=== PATIENT | female | born 1950 | race Caucasian/White ===

== ENCOUNTER → 2018-07-05 | Outpatient (CLI) | payer MEDICARE, BC ==
[2018-03-29 11:00] VITALS: BP 130/60
[~2018-07-05] MED LIST: ASPI-630 PO; ATOR40TA59 PO; GABA600T2 PO; LOSA1TAB22 PO; METF10007 PO; MULT1TAB52 PO
--- NOTE | 2018-07-05 17:10 | RAD ---
MR#: [id number] Date of Study: 07/05/2018 Ordering Physician: ANGEL BERGER, Referring Physician: ANGEL BERGER, Tech: Dilan Bocanegra MBA, RDMS, RVT, RDCS, RTR APPROVED REPORT Bilateral Lower Extremity Venous Study for DVT Patient Location: OUT-PATIENT Indications s/p b/l gsv ablations Vein Imaging (Right) CFV (R): Compressible SFJ (R): Compressible FEM (R): Compressible POP (R): Compressible DFV (R): Compressible PTV (R): Spontaneous GSV (R): Absent Flow Peroneals (R): Spontaneous Vein Imaging (Left) CFV (L): Compressible SFJ (L): Compressible FEM (L): Compressible DFV (L): Compressible PTV (L): Spontaneous GSV (L): Absent Flow Peroneals (L): Spontaneous Doppler Evaluation (Right) CFV (R): Spontaneous POP (R):Spontaneous Doppler Evaluation (Left) CFV (L):Spontaneous POP (L):Spontaneous Findings Technically limited study but within these limitations grossly there is no evidence of thrombus in th e saphenofemoral junction. The bilateral greater saphenous veins do not show any evidence of flow and this is consistent with recent ablation. The deep veins of the legs were evaluated for DVT and they show excellent compressibility and normal Doppler flow. No obvious evidence of deep venous thrombosis is noted. Critical Notification Critical Value: No <Conclusion> No clear evidence of DVT in the bilateral lower extremities. Successful bilateral greater saphenous vein ablations. Signed by : Byron Hunter, Electronically Approved : 07/05/2018 17:08:57
== END | disposition home or self-care (01) ==
LOC: US 10:49
PROVIDERS: ATTEND Internal Medicine Cardiovascular Disease
DX: I82.813 Embolism and thrombosis of superficial veins of lower extremities, bilateral (principal); I10 Essential (primary) hypertension; E11.9 Type 2 diabetes mellitus without complications; E78.00 Pure hypercholesterolemia, unspecified; E78.5 Hyperlipidemia, unspecified; E87.6 Hypokalemia; I48.0 Paroxysmal atrial fibrillation; G47.33 Obstructive sleep apnea (adult) (pediatric); Z86.72 Personal history of thrombophlebitis; Z87.891 Personal history of nicotine dependence; Z68.38 Body mass index [BMI] 38.0-38.9, adult; Z88.2 Allergy status to sulfonamides; Z88.0 Allergy status to penicillin; Z82.49 Family history of ischemic heart disease and other diseases of the circulatory system; Z83.3 Family history of diabetes mellitus
CPT/HCPCS: 93970

== ENCOUNTER → 2019-08-01 | Outpatient (CLI) | payer MEDICARE, BC ==
[2018-03-29 11:00] VITALS: BP 130/60
[~2019-08-01] MED LIST changes: -GABA600T2 PO; +GABA600T7 PO
--- NOTE | 2019-08-07 09:27 | CARD ---
MR#: [id number] Account#: Date of Study: 08/01/2019 Ordering Physician: Francia: Sussy Kothari RDCS APPROVED REPORT EXAM: Two-dimensional and M-mode echocardiogram with Doppler and color Doppler. Other Information Quality : AverageHR: 54bpm Rhythm : Bradycardia INDICATION Atrial Fibrillation 2D DIMENSIONS RVDd3.0 (2.9-3.5cm)Left Atrium(2D)3.6 (1.6-4.0cm) IVSd1.0 (0.7-1.1cm)Aortic Root(2D)2.7 (2.0-3.7cm) LVDd4.9 (3.9-5.9cm)LVOT Diameter1.9 (1.8-2.4cm) PWd1.1 (0.7-1.1cm)LVDs3.0 (2.5-4.0cm) FS (%) 39.5 %SV79.4 ml M-Mode DIMENSIONS Left Atrium(MM)3.81 (2.5-4.0cm)Aortic Root3.09 (2.2-3.7cm) Aortic Valve AoV Peak Abelino.205.0cm/sAoV VTI48.2cm AO Peak GR.16.8mmHgLVOT Peak Abelino.138.4cm/s AO Mean GR.8mmHgAVA (VMAX)1.93cm2 DC (VTI)1.90cm2 Mitral Valve MV E Mnadqqcl355.1cm/sMV E Peak Gr.8mmHg MV DECEL [id number] A Dqmppsse527.3cm/s MV E Mean Gr.2mmHgE/A Ratio1.5 Pulmonary Valve PV Peak Hbsqrctt159.0cm/s Tricuspid Valve TR P. Atvbtfda267rb/sRAP MEWPPUHV2nvTo TR Peak Gr.06zpTmOPCS63twTo LEFT VENTRICLE The left ventricle is normal size. There is borderline concentric left ventricular hypertrophy. The l eft ventricular systolic function is normal and the ejection fraction is within normal range. The Eje ction Fraction is 60-65%. There is normal LV segmental wall motion. Transmitral Doppler flow pattern is Grade II-pseudonormal filling dynamics. RIGHT VENTRICLE The right ventricle is normal size. There is normal right ventricular wall thickness. The right ventr icular systolic function is normal. ATRIA The left atrium size is normal. The right atrium size is normal. The interatrial septum is intact wit h no evidence for an atrial septal defect or patent foramen ovale as noted on 2-D or Doppler imaging. AORTIC VALVE The aortic valve is mildly calcified. The aortic valve is trileaflet. Doppler and Color Flow revealed no significant aortic regurgitation. There is no significant aortic valvular stenosis. MITRAL VALVE Mitral annular calcification is mild to moderate. There is no evidence of mitral valve prolapse. Ther e is no mitral valve stenosis. Doppler and Color-flow revealed trace mitral regurgitation. TRICUSPID VALVE The tricuspid valve is normal in structure and function. Doppler and Color Flow revealed trace tricus pid regurgitation. The PA pressure was estimated at 22 mmHg. There is no tricuspid valve prolapse or vegetation. There is no tricuspid valve stenosis. PULMONIC VALVE The pulmonic valve is not well visualized. GREAT VESSELS The aortic root is normal in size. The ascending aorta is normal in size. The IVC is normal in size a nd collapses >50% with inspiration. PERICARDIAL EFFUSION There is no evidence of significant pericardial effusion. Critical Notification Critical Value: No <Conclusion> The left ventricle is normal size. The left ventricular systolic function is normal and the ejection fraction is within normal range. The Ejection Fraction is 60-65%. There is borderline concentric left ventricular hypertrophy. There is no significant aortic valvular stenosis. Doppler and Color Flow revealed no significant aortic regurgitation. Doppler and Color-flow revealed trace mitral regurgitation. Doppler and Color Flow revealed trace tricuspid regurgitation. The PA pressure was estimated at 22 mmHg. Signed by : Nas Peterson MD Electronically Approved : 08/01/2019 15:07:39
== END | disposition home or self-care (01) ==
LOC: ECHO 13:20
PROVIDERS: ATTEND Internal Medicine Cardiovascular Disease
DX: I08.0 Rheumatic disorders of both mitral and aortic valves (principal); I48.0 Paroxysmal atrial fibrillation
CPT/HCPCS: 93306

== ENCOUNTER 2019-10-08 15:45 | Emergency (ER) | payer MEDICARE, BC ==
[~2019-10-08] VITALS: Ht 170.2 cm; Wt 122.5 kg
[2019-10-08] MEDS ORDERED: ASPIRIN CHEWABLE 81 MG TABLET. PO STA (16:10)
--- NOTE | 2019-10-08 16:17 | PHYS DOC ---
Past Medical History Past Medical History: Diabetes-Type II, High Cholesterol, Hypertension Additional Past Medical Histor: heart murmur, mood disorder Past Surgical History: Tonsillectomy, Other Additional Past Surgical Histo: bilat carpal tunnel, R 2nd toe, bilat mastoid Alcohol Use: Rarely Drug Use: None Adult General Chief Complaint Chief Complaint: Palpitations HPI HPI Patient is a 69 year old female who presents with heart fluttering that started around 2:30 PM. The patient states that she was not short of breath and that it resolved in about 30 minutes. The patient took 2 baby aspirins when this started. She also takes one baby aspirin in the morning. States that currently she is not having the symptoms and that she denies any pain at this time. The patient does have a history of atrial fibrillation. She is seen by Dr. Izaguirre for this condition. Review of Systems Review of Systems Constitutional: Denies fever or chills [] Eyes: Denies change in visual acuity, redness, or eye pain [] HENT: Denies nasal congestion or sore throat [] Respiratory: Denies cough or shortness of breath [] Cardiovascular: No additional information not addressed in HPI [] GI: Denies abdominal pain, nausea, vomiting, bloody stools or diarrhea [] : Denies dysuria or hematuria [] Musculoskeletal: Denies back pain or joint pain [] Integument: Denies rash or skin lesions [] Neurologic: Denies headache, focal weakness or sensory changes [] Endocrine: Denies polyuria or polydipsia [] Complete systems were reviewed and found to be within normal limits, except as documented in this note. Current Medications Current Medications Current Medications Medications (Trade) Dose Ordered Sig/Terrell Start Time Stop Time Status Last Admin Dose Admin Aspirin (Children'S Aspirin) 81 mg 1X STAT 10/08/19 16:10 10/08/19 16:12 DC 10/08/19 16:19 81 MG Allergies Allergies Allergies Coded Allergies Type Severity Reaction Last Updated Verified Penicillins Allergy Intermediate rqsh/hives 03/27/18 Yes Sulfa (Sulfonamide Antibiotics) Allergy Intermediate rash/hives 03/27/18 Yes nicardipine Allergy Intermediate rash/hives 03/27/18 Yes codeine Allergy Unknown 10/08/19 Yes Physical Exam Physical Exam Constitutional: Well developed, well nourished, no acute distress, non-toxic appearance. [] HENT: Normocephalic, atraumatic, bilateral external ears normal, oropharynx moist, no oral exudates, nose normal. [] Eyes: PERRLA, EOMI, conjunctiva normal, no discharge. [] Neck: Normal range of motion, no tenderness, supple, no stridor. [] Cardiovascular:Heart rate regular rhythm, has heart murmur Lungs & Thorax: Bilateral breath sounds clear to auscultation [] Skin: Warm, dry, no erythema, no rash. [] Neurologic: Alert and oriented X 3, normal motor function, normal sensory function, no focal deficits noted. [] Psychologic: Affect normal, judgement normal, mood normal. [] Current Patient Data Vital Signs Vital Signs Date Time Temp Pulse Resp B/P (MAP) Pulse Ox O2 Delivery O2 Flow Rate FiO2 10/08/19 16:10 97.8 57 18 144/69 (94) 95 Room Air 97.8 Lab Values Laboratory Tests Test 10/08/19 16:30 White Blood Count 8.9 x10^3/uL (4.0-11.0) Red Blood Count 4.84 x10^6/uL (3.50-5.40) Hemoglobin 14.9 g/dL (12.0-15.5) Hematocrit 44.6 % (36.0-47.0) Mean Corpuscular Volume 92 fL (79-100) Mean Corpuscular Hemoglobin 31 pg (25-35) Mean Corpuscular Hemoglobin Concent 33 g/dL (31-37) Red Cell Distribution Width 12.5 % (11.5-14.5) Platelet Count 188 x10^3/uL (140-400) Neutrophils (%) (Auto) 64 % (31-73) Lymphocytes (%) (Auto) 25 % (24-48) Monocytes (%) (Auto) 8 % (0-9) Eosinophils (%) (Auto) 3 % (0-3) Basophils (%) (Auto) 0 % (0-3) Neutrophils # (Auto) 5.7 x10^3/uL (1.8-7.7) Lymphocytes # (Auto) 2.2 x10^3/uL (1.0-4.8) Monocytes # (Auto) 0.7 x10^3/uL (0.0-1.1) Eosinophils # (Auto) 0.3 x10^3/uL (0.0-0.7) Basophils # (Auto) 0.0 x10^3/uL (0.0-0.2) Prothrombin Time 14.2 SEC (11.7-14.0) H Prothrombin Time INR 1.1 (0.8-1.1) Activated Partial Thromboplast Time 35 SEC (24-38) Sodium Level 142 mmol/L (136-145) Potassium Level 3.3 mmol/L (3.5-5.1) L Chloride Level 102 mmol/L (98-107) Carbon Dioxide Level 33 mmol/L (21-32) H Anion Gap 7 (6-14) Blood Urea Nitrogen 17 mg/dL (7-20) Creatinine 0.9 mg/dL (0.6-1.0) Estimated GFR (Cockcroft-Gault) 62.1 BUN/Creatinine Ratio 19 (6-20) Glucose Level 145 mg/dL (70-99) H Calcium Level 9.1 mg/dL (8.5-10.1) Magnesium Level 1.6 mg/dL (1.8-2.4) L Total Bilirubin 0.4 mg/dL (0.2-1.0) Aspartate Amino Transferase (AST) 23 U/L (15-37) Alanine Aminotransferase (ALT) 24 U/L (14-59) Alkaline Phosphatase 84 U/L (46-116) Troponin I Quantitative < 0.017 ng/mL (0.000-0.055) Total Protein 7.3 g/dL (6.4-8.2) Albumin 3.5 g/dL (3.4-5.0) Albumin/Globulin Ratio 0.9 (1.0-1.7) L Laboratory Tests 10/08/19 16:30 Laboratory Tests 10/08/19 16:30 EKG EKG EKG interpreted by Dr. Remy Gaines with rate of 60, No STEMI. Radiology/Procedures Radiology/Procedures [] Course & Med Decision Making Course & Med Decision Making Pertinent Labs and Imaging studies reviewed. (See chart for details) The patient has a history of A. fib. The patient does not appear to be in A. fib on arrival to the ER. We'll get labs, chest x-ray, EKG, and observe her on the monitor while she is here. Will give her another baby aspirin to get her to 324 for the day. Labs are unremarkable with exception of 1.6 magnesium and 3.3 potassium. Will replace. Patient has not been in A-fib during visit. Symptoms resolved will d/c home to follow up with primary care provider. Graham Disclaimer Dragon Disclaimer This electronic medical record was generated, in whole or in part, using a voice recognition dictation system. Departure Departure Impression: Primary Impression: Hypokalemia Additional Impression: Hypomagnesemia Disposition: HOME, SELF-CARE Condition: STABLE Referrals: BOLIVAR CHAVES MD (PCP) Patient Instructions: Hypokalemia, Hypomagnesemia Additional Instructions: Thank you for visiting [facility]. We appreciate you trusting us with your care. If any additional problems come up don't hesitate to return to visit us. Please follow up with your primary care provider so they can plan additional care if needed and know about the problem that you had. If symptoms worsen come back to the Emergency Department. Any concerning symptoms that start such as chest pain, shortness of air, weakness or numbness on one side of the body, running high fevers or any other concerning symptoms return to the ER. Problem Qualifiers JUDAH GLEZ APRN Oct 08, 2019 16:17
--- NOTE | 2019-10-08 16:30 | EKG ---
[facility] [address] [place] [address] Test Date: 2019-10-08 Test Time: 16:20:15 Pat Name: ARVIN CORMIER Department: Room: Gender: F Seo Consultant: : 1950 Requested By: JUDAH GLEZ Order Number: [id number] Reading MD: Measurements Intervals [place] Rate: 60 P: 42 TX: 206 QRS: -17 QRSD: 98 T: 24 QT: 464 QTc: 464 Interpretive Statements SINUS RHYTHM LEFTWARD AXIS OTHERWISE NORMAL ECG RI6.01 No previous ECG available for comparison
[2019-10-08 16:47] LABS: BASO % 0 % (0-3); EOS # 0.3 x10^3/uL (0.0-0.7); EOS % 3 % (0-3); HEMATOCRIT 44.6 % (36.0-47.0); HEMOGLOBIN 14.9 g/dL (12.0-15.5); LYMPH # 2.2 x10^3/uL (1.0-4.8); LYMPH % 25 % (24-48); MEAN CORPUSCULAR HEMOGLOBIN 31 pg (25-35); MEAN CORPUSCULAR HGB CONC 33 g/dL (31-37); MEAN CORPUSCULAR VOLUME 92 fL (79-100); MONO # 0.7 x10^3/uL (0.0-1.1); MONO % 8 % (0-9); NEUT # 5.7 x10^3/uL (1.8-7.7); NEUT % 64 % (31-73); PLATELET COUNT 188 x10^3/uL (140-400); RED BLOOD COUNT 4.84 x10^6/uL (3.50-5.40); RED CELL DISTRIBUTION WIDTH 12.5 % (11.5-14.5); WHITE BLOOD COUNT 8.9 x10^3/uL (4.0-11.0)
--- NOTE | 2019-10-08 16:53 | RAD ---
PA and lateral views of the chest. Comparison: 04/26/2018. Indication: Palpitations Findings: The heart size is enlarged but stable. No pneumothorax or effusion. No air space or interstitial disease. The bony structures are intact. Impression: 1. No acute cardiopulmonary process. Electronically signed by: Matthew Domingo MD (10/08/2019 4:50 PM) [id number]
[2019-10-08 16:56] LABS: CALCIUM 9.1 mg/dL (8.5-10.1); CREATININE 0.9 mg/dL (0.6-1.0); GFR 62.1; POTASSIUM 3.3 mmol/L (3.5-5.1); PROTHROMBIN TIME PATIENT 14.2 SEC (11.7-14.0)
[2019-10-08 17:02] LABS: ALBUMIN 3.5 g/dL (3.4-5.0); ALBUMIN/GLOBULIN RATIO 0.9 (1.0-1.7); MAGNESIUM 1.6 mg/dL (1.8-2.4); TOTAL BILIRUBIN 0.4 mg/dL (0.2-1.0); TOTAL PROTEIN 7.3 g/dL (6.4-8.2)
[2019-10-08] MEDS ORDERED: POTASSIUM CHLORIDE 20 MEQ TABLET.ER. PO STA (17:36)
[2019-10-08] MEDS ORDERED: MAGNESIUM SULFATE 1GM 100 ML IV STA (17:36)
[2019-10-08 19:00] VITALS: BP 116/55
== END 2019-10-08 19:26 | disposition home or self-care (01) ==
LOC: ER 15:45
DX: E87.6 Hypokalemia (principal); E83.42 Hypomagnesemia; I48.91 Unspecified atrial fibrillation; E11.9 Type 2 diabetes mellitus without complications; E78.00 Pure hypercholesterolemia, unspecified; I10 Essential (primary) hypertension; Z88.0 Allergy status to penicillin; Z88.2 Allergy status to sulfonamides; Z88.8 Allergy status to other drugs, medicaments and biological substances; Z88.5 Allergy status to narcotic agent
CPT/HCPCS: 36415; 71046; 80053; 83735; 84484; 85025; 85610; 85730; 93005; 96365; 99285; J3475

== ENCOUNTER → 2020-03-31 | Outpatient (CLI) | payer MEDICARE, BC ==
[~2020-03-31] MED LIST changes: +MULT-445 PO; -MULT1TAB52 PO
--- NOTE | 2020-03-31 09:58 | RAD ---
MR#: [id number] Date of Study: 03/31/2020 Ordering Physician: ANGEL BERGER, Referring Physician: ANGEL BERGER, Tech: Dilan Bocanegra MBA, RDMS, RVT, RDCS, RTR APPROVED REPORT Patient Location : OUT-PATIENT Indications venous insufficiency Perforators Thigh Perforators Calf Perforators Right: cm up from medial heel 19,9,3cm back from the anterior border of tibia 3,6,3 diameter 3.5,2.4 ,2.5mm. Left: cm up from medial heel 25,18cm back from the anterior border of tibia 3,3 diameter 2.6,1.9mm . Findings The bilateral greater saphenous veins have been previously ablated. The bilateral lesser saphenous veins do not show any evidence of reflux. There are multiple calf perforators noted. On the right there are three perforators at 19, 9 and 3 cm up from ankle measuring 0.35, 0.24 and 0.2 5 cm respectively. On the left there are two perforators at 18 and 25 cm up from ankle measuring 0.26 and 0.19 cm, respe ctively. Critical Notification Critical Value: No <Conclusion> 1. Prior bilateral GSV ablation 2. Bilateral assistant center manager reflux as noted above. Signed by : Byron Hunter, Electronically Approved : 03/31/2020 09:58:23
== END | disposition home or self-care (01) ==
LOC: US 08:58
PROVIDERS: ATTEND Internal Medicine Cardiovascular Disease
DX: I87.2 Venous insufficiency (chronic) (peripheral) (principal)
CPT/HCPCS: 93970

== ENCOUNTER → 2020-04-22 | Outpatient (CLI) | payer MEDICARE, BC | END | disposition home or self-care (01) | LOC: LAB 14:10 | PROVIDERS: ATTEND Internal Medicine Cardiovascular Disease | DX: Z01.818 Encounter for other preprocedural examination (principal); Z11.59 Encounter for screening for other viral diseases | CPT/HCPCS: U0003-CS ==

== ENCOUNTER 2020-04-25 09:37 | Outpatient (CLI) | payer MEDICARE, BC ==
[~2020-04-25] VITALS: Ht 167.6 cm; Wt 122.9 kg
[2020-04-25] VITALS (10 sets, daily range): BP systolic 94–133; BP diastolic 52–68
[2020-04-25 09:57] LABS: HEMATOCRIT 46.7 % (36.0-47.0); HEMOGLOBIN 15.9 g/dL (12.0-15.5); RED BLOOD COUNT 5.13 x10^6/uL (3.50-5.40); RED CELL DISTRIBUTION WIDTH 12.8 % (11.5-14.5); WHITE BLOOD COUNT 7.9 x10^3/uL (4.0-11.0)
[2020-04-25] MEDS ORDERED: LORA2ORA7 PO (10:07)
[2020-04-25] MEDS ORDERED: FURO20TA3 PO (10:07)
[2020-04-25] MEDS ORDERED: CALC500T30 PO (10:07)
[2020-04-25] MEDS ORDERED: LAMO150T4 PO (10:07)
[2020-04-25] MEDS ORDERED: APIX5TAB PO (10:07)
[2020-04-25] MEDS ORDERED: FLEC100T PO (10:07)
[2020-04-25] MEDS ORDERED: LORA10CA PO (10:07)
[2020-04-25] MEDS ORDERED: METO25TA4 PO (10:07)
[2020-04-25 10:09] LABS: POTASSIUM 4.4 mmol/L (3.5-5.1); PROTHROMBIN TIME PATIENT 12.6 SEC (11.7-14.0)
[2020-04-25] MEDS ORDERED: LIDOCAINE 1% Multi-Dose 20 ML VIAL. ONE (10:13)
[2020-04-25] MEDS ORDERED: IOHEXOL 300 MG/ML 100ML VIAL. ONE (10:13)
[2020-04-25] MEDS ORDERED: fentaNYL PF VIAL 100 MCG/2 ML VIAL ONE (10:17)
[2020-04-25] MEDS ORDERED: MIDAZOLAM HCL/PF 2 MG/2 ML VIAL. ONE (10:17)
[2020-04-25] MEDS ORDERED: LIDOCAINE 1% Multi-Dose 20 ML VIAL. INJ ONE (11:00)
[2020-04-25] MEDS ORDERED: IOHEXOL 300 MG/ML 100ML VIAL. IART ONE (11:00)
[2020-04-25] MEDS ORDERED: MIDAZOLAM HCL/PF 2 MG/2 ML VIAL. IV ONE (11:00)
[2020-04-25] MEDS ORDERED: fentaNYL PF VIAL 100 MCG/2 ML VIAL IV ONE (11:00)
[2020-04-25] MEDS ORDERED: CONTRAST GIVEN. MC PRN (11:15)
--- NOTE | 2020-04-25 12:12 | CARD ---
MR#: [id number] Date of Study: 04/25/2020 Ordering Physician: ANGEL BERGER, Referring Physician: ANGEL BERGER Tech: GABI OLIVARES RTR APPROVED REPORT Technologist: GABI OLIVARES RTR Nurse: JOSUE RUBIO RN Procedure(s) performed: Right and left heart catheterization, selective coronary angiography and left ventriculography MODERATE SEDATION TIME: 32 MIN FLUORO TIME: 5.8 MIN DOSE: 52.8 GYCM2 CONTRAST: 101 CC OMNI INDICATION The indication(s) include : Refractory dyspnea on exertion. [facility] Clinical Frailty Scale [facility] Clinical Frailty Scale: Mildly Frail Heart Failure Heart Failure: No PROCEDURE NARRATIVE After explaining the risks, benefits and alternative options, informed consent was obtained from bee ent. Patient was brought to the cardiac [facility] and her right groin was prepped and draped in the u sual fashion. 20 cc of 2% lidocaine was infiltrated in the skin and subcutaneous tissues for local a nesthesia. Arterial and venous accesses were obtained in the right common femoral artery and vein re spectively and 6 and 5 Argentine sheaths were inserted. A 5 [place] catheter was was advanced under fluoroscopic guidance and intracardiac pressures, oxygen saturations were measured. 6 Argentine J L4 6 Argentine JR4 catheters were used to perform selective angiography of the left and right coronary a rteries. 6 Argentine pigtail catheter was used to perform left ventriculography. Patient tolerated the procedure well. Hemostasis was achieved using Angio-Seal and manual compression. There were no imm ediate complications. FINDINGS A. RIGHT HEART CATHETERIZATION 1. Intracardiac pressures: Mean right atrial pressure 13 mmHg, right ventricular pressure 52/11 mmHg , pulmonary artery pressure 47/16 mmHg, mean PA pressure 31 mmHg and mean pulmonary capillary wedge p ressure 17 mmHg. Mild pulmonary hypertension. 2. Oxygen saturations: Right atrium 72.5%, pulmonary artery 73.1%, femoral arterial sheath 97.7%. N o evidence of intracardiac shunt. 3. Cardiac output by Fabiola method 3.65 L/min. B. LEFT HEART CATHETERIZATION 1. Hemodynamics: Elevated left ventricular end-diastolic pressure 23 mmHg consistent with mild acute on chronic diastolic heart failure. No pullback gradient across the aortic valve. 2. Left ventriculography: Normal left ventricular systolic function with ejection fraction estimated at 60%. No significant mitral regurgitation seen. 3. Coronary angiography: a. The left main coronary artery arose from the left sinus of Valsalva, gave rise to the left anteri or descending and left circumflex arteries and did not show any significant stenosis. b. The left anterior descending artery did not show any significant stenosis. c. The left circumflex artery was a large and dominant vessel that did not show any significant sten osis. d. The right coronary artery was a small and nondominant vessel that did not show any significant st enosis. Conclusion 1. Left dominant coronary arteries without any significant stenosis. 2. Normal left ventricle systolic function with ejection fraction estimated at 60%. 3. Mild acute on chronic diastolic heart failure as evidenced by elevated LVEDP. 4. Mild pulmonary hypertension. 5. No evidence of intracardiac shunt. Recommendations Medical Therapy Signed by : Angel Berger, Electronically Approved : 04/25/2020 12:12:08
--- NOTE | 2020-04-25 14:22 | NUR ---
discharge instructions reviewed with patient. GEORGETTE [place]. Pt discharged home with family.
== END 2020-04-25 14:24 | disposition home or self-care (01) ==
LOC: CCL 09:37
PROVIDERS: ATTEND Internal Medicine Cardiovascular Disease
DX: R07.9 Chest pain, unspecified (principal); I50.33 Acute on chronic diastolic (congestive) heart failure; I27.20 Pulmonary hypertension, unspecified; I48.0 Paroxysmal atrial fibrillation; I87.2 Venous insufficiency (chronic) (peripheral); E11.9 Type 2 diabetes mellitus without complications; Z79.899 Other long term (current) drug therapy; Z87.891 Personal history of nicotine dependence; Z88.0 Allergy status to penicillin; Z88.2 Allergy status to sulfonamides; Z88.8 Allergy status to other drugs, medicaments and biological substances
CPT/HCPCS: 36415; 80048; 85027; 85610; 93460; 99152; 99153; C1760; C1769; C1773; C1892; J1644; J2250; J3010; J3490; Q9967; G0269; C1771